=== PATIENT | female | born 1960 | race African-American/Black ===

== ENCOUNTER 2018-01-13 05:12 | Emergency (ER) | payer OTHER ==
[~2018-01-13] VITALS: Ht 157.5 cm; Wt 69.0 kg
[~2018-01-13 05:12] MED LIST: ALORA1 EAC1 TD; AMBIEN 10 MG TA10 MG PO; HYDROCHLOROTHIA25 M1 PO; NAPROSYN500 MG PO; PRILOSEC 20 MG20 MG PO; VALTREX 500 MG500 M1 PER TUBE
[2018-01-13] MEDS ORDERED: XANAX 0.25 MG0.25 MG PO (05:31)
[2018-01-13] MEDS ORDERED: POTASSIUM20 PO (05:31)
[2018-01-13] MEDS ORDERED: MEDROLDOSEPACK PO (06:07)
[2018-01-13] MEDS ORDERED: NAPROSYN500 MG PO (06:07)
[2018-01-13] MEDS ORDERED: NORFLEX100 MG PO (06:07)
[2018-01-13 07:01] VITALS: BP 109/64
== END 2018-01-13 07:06 | disposition home or self-care (01) ==
LOC: ER 05:12
DX: S39.012A Strain of muscle, fascia and tendon of lower back, initial encounter (principal); M54.41 Lumbago with sciatica, right side; W17.89XA Other fall from one level to another, initial encounter; Y93.89 Activity, other specified; Y92.89 Other specified places as the place of occurrence of the external cause; Y99.8 Other external cause status

== ENCOUNTER 2019-10-26 12:43 | Emergency (ER) | payer OTHER ==
[~2019-10-26] VITALS: Ht 157.5 cm; Wt 65.3 kg
[~2019-10-26 12:43] MED LIST changes: +MEDROLDOSEPACK PO; +NORFLEX100 MG PO; +POTASSIUM20 PO; +XANAX 0.25 MG0.25 MG PO
[2019-10-26] MEDS ORDERED: HYDROCHLOROTHIA25 M2 PO (13:21)
[2019-10-26] MEDS ORDERED: ZOLPIDEM TARTRA10 MG PO (13:21)
[2019-10-26] MEDS ORDERED: KLOR-CON M2020 MEQ PO (13:21)
[2019-10-26] MEDS ORDERED: TRAMADOL 50 MG50 MG PO (13:21)
[2019-10-26] MEDS ORDERED: ALPRAZOLAM 0.0.25 M1 PO (13:22)
[2019-10-26] MEDS ORDERED: XYZAL5 MG PO (13:22)
[2019-10-26 13:39] LABS: ABSOLUTE NEUTROPHILS 11.7 thou/uL (1.4-8.2); BASOPHILS 0.2 % (0.0-2.0); EOSINOPHILS 0.2 % (0.0-3.0); HEMATOCRIT 34.1 % (37.0-47.0); HEMOGLOBIN 11.2 gm/dL (12.0-15.0); LYMPHOCYTES 7.6 % (24.0-44.0); MCH 27.1 pg (26.0-34.0); MCHC 32.9 g/dL (28.0-37.0); MCV 82.4 fL (80.0-100.0); MONOCYTES 6.3 % (1.0-8.0); PLATELET COUNT 447 thou/uL (150-400); POLYS 85.7 % (36.0-66.0); RBC 4.14 mil/uL (4.20-5.00); RDW 15.1 % (10.5-14.5); WBC 13.6 thou/uL (4.0-11.0)
[2019-10-26 13:50] LABS: ANION GAP 9 mmol/L (7-16); BUN 14 mg/dL (7-18); CALCIUM 9.6 mg/dL (8.5-10.1); CHLORIDE 98 mmol/L (98-107); CO2 28 mmol/L (21-32); CREATININE 0.8 mg/dL (0.6-1.0); GLUCOSE 85 mg/dL (74-106); POTASSIUM 3.7 mmol/L (3.5-5.1); SODIUM 135 mmol/L (136-145)
[2019-10-26 14:00] LABS: ALBUMIN 3.1 g/dL (3.4-5.0); SGOT 30 U/L (15-37); SGPT 24 U/L (30-65); TOTAL BILIRUBIN 0.4 mg/dL (<0.1-1.0); TOTAL PROTEIN 8.4 g/dL (6.4-8.2); TROPONIN-I <0.06 ng/mL (<0.06)
[2019-10-26] MEDS ORDERED: LEVAQUIN 750 M750 MG PO ×2 (15:32→15:33)
[2019-10-26] MEDS ORDERED: ALBUTEROL2.5 MG/31 INH (15:32)
[2019-10-26] MEDS ORDERED: PROAIR HFA8.5 GM INH (15:33)
[2019-10-26 15:40] VITALS: BP 102/53
--- NOTE | 2019-10-27 10:49 | EKG ---
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[facility] : 1960 Requested By: Aron Escalera Order Number: [id number] MD: Jefry Randolph Measurements Intervals [place] Rate: 61 P: -15 [place]: 142 QRS: 29 QRSD: 85 T: 20 QT: 402 QTc: 405 Interpretive Statements Sinus rhythm Normal tracing Compared to ECG 07/06/2013 21:18:26 Sinus bradycardia no longer present Electronically Signed On 10-27-2019 10:47:36 CDT by Jefry Randolph [email or web address] <ELECTRONICALLY SIGNED> By: Jefry Randolph MD, FACC 10/27/19 1047 [id number] [id number] Jefry Randolph MD, [facility] /EPI
== END 2019-10-26 15:40 | disposition home or self-care (01) ==
LOC: ER 12:43
PROVIDERS: Physician Assistant
DX: J18.9 Pneumonia, unspecified organism (principal); Z79.899 Other long term (current) drug therapy; Z88.1 Allergy status to other antibiotic agents

== ENCOUNTER 2021-03-17 19:16 | Emergency (ER) | payer OTHER ==
[~2021-03-17] VITALS: Ht 157.5 cm; Wt 68.0 kg
--- NOTE | ~2021-03-17 | EMS ---
[address] [address] EMS Patient Care Report Name: REYES MOODY Room #: DEP PORTER Amaral#: [id number] Admission: 03/17/21 Attend Phys: Discharge: 03/17/21 Date of : 60 Report #: [id number] THIS REPORT FOR: //name// Report Transmitted: 03/18/2021 12:23 EMS Care Summary [place], [place]/[facility] Incident [id number] @ 03/17/2021 18:26 Incident Location [address] [place] [address] Patient REYES MOODY Female, 61 Years 1960 Patient Address [address] [place] [address] Patient History Hypertension (HTN),Pneumonia,Back Pain (Chronic), Patient Allergies No known allergies, Patient Medications Ambien, Hydrochlorothiazide (Hctz), Potassium, Tramadol, Chief Complaint CHEST PAIN Disposition Patient Treated, Transported by Private Vehicle Dispatch Reason Chest Pain (Non-Traumatic) Transported To [facility] Narrative DISPATCHED EMERGENCY ON A CHEST PAIN. 61 Y/O FEMALE SITTING ON BED IN DOCTORS OFFICE APPEARING IN NO IMMEDIATE DISTRESS. GCS 15 AND A/OX4. CONSENTS FOR [address] [address] EMS Patient Care Report Name: REYES MOODY Room #: DEP Munir#: [id number] Admission: 03/17/21 Attend Phys: Discharge: 03/17/21 Date of : 60 Report #: [id number] EVALUATION AND V/S'S BUT STATES THAT HER DAUGHTER IS ON THE WAY TO PICK HER UP AND TAKE HER TO [facility]. URGENT CARE STAFF STATE THAT PT'S BLOOD PRESSURE WAS INCREASED PRIOR TO EMS ARRIVAL. PT STATES THAT SHE STARTED HAVING CHEST PAINS 2 DAYS AGO. STATES SHE HAS HAD MULTIPLE EPISODES OF SHARP PRESSURE TO LEFT SIDE OF CHEST WHEN TAKING A DEEP BREATH WITH PAIN AT 7 UPON EXERTION. DENIES ANY CURRENT PAIN. DENIES ANY PREVIOUS CARDIAC HISTORY OR HAVING THESE EPISODES PRIOR TO TWO DAYS AGO. PLACED ON MONITOR AND V/S'S OBTAINED. SINUS BRADYCARDIA ON THE MONITOR. 12-LEAD ECG OBTAINED WITH NO OBVIIOUS ST ELEVATION OR DEPRESSION IN ANY LEADS. B/P IS INCREASED. ADVISED PT OF THESE FINDINGS. ADVISED THAT PT SHOULD BE FURTHER EVALUATED AT THE HOSPITAL BY A DOCTOR AND THAT EMS IS NOT SUBSTITUTE FOR EVALUATION BY A DOCTOR. ADVISED OF RISKS INCLUDING POSSIBILITY OF CARDIAC EVENT, COMA, , ETC. PT REFUSES TRANSPORTATION AND PT'S DAUGHTER ARRIVES ON SCENE. V/S''S OBTAINED AND B/P REMAINS INCREASED AND ECG STILL SHOWING BRADYCARDIA. PT SIGNS REFUSAL. PT'S DAUGHTER SIGNS WITNESS. PT STATES THAT SHE IS HAVING HER DAUGHTER TAKE HER TO [facility] ER. ADVISED TO CALL 911 BACK IF CONDITION BECOMES WORSE AND/OR PT FEELS THE NEED. PT GETS INTO CAR WITH DAUGHTER WITHOUT INCIDENT AND LEAVE THE SCENE. MEDIC 41 PLACED IN SERVICE. Initial Vitals @18:46P: 52,R: 10,BP: 168/108,SpO2: 99, @18:44P: 51,R: 16,BP: 158/98,Pain: 0/10,GCS: 15,CO: 0,SpO2: 100,Revised Trauma: 12,NM Suspected: false @18:49P: 50,R: 20,BP: 154/93,Pain: 0/10,GCS: 15,SpO2: 99,Revised Trauma: 12,NM Suspected: false Assessments @18:42MENTAL:Time Oriented,Person Oriented,Place Oriented,Event Oriented,SKIN:HEENT:Eyes: Right Pupil: 4-mm,Eyes: Left Pupil: 4-mm,Head/Face: No Abnormalities,Neck/Airway: No Abnormalities,LUNG SOUNDS:General: No Abnormalities,ABDOMEN:General: No Abnormalities,PELVIS//GI:EXTREMITIES:Capillary Refill: Left Upper: < 2 Sec,Capillary Refill: Right Upper: < 2 Sec,Left Arm: No Abnormalities,Right Arm: No Abnormalities,Left Leg: No Abnormalities,Right Leg: No Abnormalities,PULSE:Radial: 2+ Normal,NEURO:No Abnormalities, Impression Chest pain on breathing Procedures @18:5112-Lead ECGResponse: UnchangedSucceeded@18:443-Lead ECGResponse: Unchanged@18:42ALS AssessmentResponse: UnchangedSucceeded Timeline 18:24,Call Received 18:24,Dispatch Notified [address] [address] EMS Patient Care Report Name: REYES MOODY Tiffanie Room #: DEP PORTER Amaral#: [id number] Admission: 03/17/21 Attend Phys: Discharge: 03/17/21 Date of : 60 Report #: [id number] 18:26,Dispatched 18:27,En Route 18:38,On Scene 18:41,At Patient 18:42,ALS Assessment,Response: UnchangedSucceeded, 18:44,3-Lead ECG,Response: Unchanged 18:44,BP: 158/98 M,PULSE: 51,RR: 16 R,SPO2: 100 Ox,ETCO2: ,BG: ,PAIN: 0,GCS: 15, 18:46,BP: 168/108 M,PULSE: 52,RR: 10 R,SPO2: 99 Ox,ETCO2: ,BG: ,PAIN: ,GCS: , 18:49,BP: 154/93 M,PULSE: 50,RR: 20 R,SPO2: 99 Ox,ETCO2: ,BG: ,PAIN: 0,GCS: 15, 18:51,12-Lead ECG,Response: UnchangedSucceeded, 19:31,Call Closed Disclaimer v1.1 Copyright 2020 [employer] This EMS Care Summary contains data elements from the applicable legal record (which may be displayed differently). It is designed to provide pertinent information for the following purposes: continuity of care, clinical quality, and state data reporting. The complete legal record is available to ED staff and administrators of the receiving hospital in [email or web address]'s Patient Tracker. All data is provided "as is."
[~2021-03-17 19:16] MED LIST changes: +ALBUTEROL2.5 MG/31 INH; +ALPRAZOLAM 0.0.25 M1 PO; +HYDROCHLOROTHIA25 M2 PO; +KLOR-CON M2020 MEQ PO; +LEVAQUIN 750 M750 MG PO; +PROAIR HFA8.5 GM INH; +TRAMADOL 50 MG50 MG PO; +XYZAL5 MG PO; +ZOLPIDEM TARTRA10 MG PO
[2021-03-17 20:07] LABS: BASOPHILS 0.4 % (0.0-2.0); EOSINOPHILS 2.6 % (0.0-3.0); HEMOGLOBIN 13.3 gm/dL (12.0-15.0); LYMPHOCYTES 26.2 % (24.0-44.0); MCHC 33.1 g/dL (28.0-37.0); MCV 84.5 fL (80.0-100.0); MONOCYTES 9.7 % (1.0-8.0); PLATELET COUNT 290 thou/uL (150-400); POLYS 61.1 % (36.0-66.0); RBC 4.74 mil/uL (4.20-5.00); RDW 15.7 % (10.5-14.5); WBC 4.9 thou/uL (4.0-11.0)
[2021-03-17 20:16] LABS: POTASSIUM 3.7 mmol/L (3.5-5.1)
[2021-03-17 20:18] LABS: CALCIUM 9.9 mg/dL (8.5-10.1); CREATININE 0.9 mg/dL (0.6-1.0)
[2021-03-17 20:28] LABS: ALBUMIN 4.2 g/dL (3.4-5.0); TOTAL BILIRUBIN 0.2 mg/dL (0.2-1.0); TOTAL PROTEIN 8.3 g/dL (6.4-8.2)
[2021-03-17 21:26] VITALS: BP 132/76
--- NOTE | 2021-03-18 08:28 | EKG ---
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
== END 2021-03-17 21:28 | disposition home or self-care (01) ==
LOC: ER 19:16
PROVIDERS: Physician Assistant
DX: R07.89 Other chest pain (principal); Z90.710 Acquired absence of both cervix and uterus; Z79.899 Other long term (current) drug therapy; Z88.0 Allergy status to penicillin; Z88.1 Allergy status to other antibiotic agents